=== PATIENT | female | born 1980 | race Caucasian/White ===

== ENCOUNTER 2020-12-31 01:14 | Inpatient (IN) | payer MEDICARE, SELFPAY ==
[2020-12-31 01:14] VITALS: BP 91/65; PULSE 74; RESP 18; TEMP 36.7; O2SAT 99
[2020-12-31 01:15] VITALS: BMI 20.3
[2020-12-31 06:00] VITALS: BP 76/49; PULSE 61; RESP 18; TEMP 36.6; O2SAT 97
--- NOTE | 2020-12-31 13:17 | P.HP_ITS ---
Providers/Chief Complaint Admitting Physician: Pablo Simon MD Chief Complaint: PSYCHOSIS - BED 151/1 HPI NPU History of Present Illness Radha Eguene is a 40 year old female who presented to an outside hospital endorsing suicidal thinking as well as psychosis with positive drug screen. He was transferred to [facility] and admitted to the neuropsychiatric unit for definitive treatment of those issues. This morning she presents reporting that she has been hospitalized multiple times, maybe ten, the most recent was May of 2018. She was a resistant historian, seeming annoyed at many [facility] ns and finding humor at most others. She reports that she gets outpatient services and was able to identify that she is on hydrocortisone, Neurontin, Valaciclovir, Xanax, Trazodone and Zyprexa, and some other supplements. She endorses smoking cigarettes, then to all other questions including alcohol, marijuana, or any other drugs, she reported sometimes but would not give specifics for most recent addictive behavior. She endorses being in rehab one time and having a DUI. The reports from the outside hospital were that [place] the middle [place]. She reports that she had broken down on the road and that she was in the middle of the road at some point, but we discussed the fact that if someone was crossing the road or otherwise behaving normally in the road, they would be described as being in the road, to which she laughed. She gave no other real information about the circumstances that led to her being placed on a hold, but we discussed the risks, benefits, and alternatives of restarting her medications that we could verify, and she understood and agreed to proceed as is documented in this note. PSYCHIATRIC HISTORY: As above. SUBSTANCE ABUSE HISTORY: As above. FAMILY HISTORY: She endorses mental health and addiction issues on her mom?s side of the family and addiction issues and suicide attempts on her father?s side of the family. DEVELOPMENTAL HISTORY: She denies any issues with her mother?s or delivery of her. She met all developmental milestones on time. She denies any speech therapy, learning support, emotional support, or special education classes. PSYCHOSOCIAL HISTORY: She reports her parents were together when she was born and that she has an older brother that is the product of that union. Neither of her parents had any other children. She said her childhood was not great, but she denied emotional, physical, or sexual abuse. She endorses graduating from high school and reports getting a college degree in [place] in [employer] with a minor in Yoruba. She was resistant to questions about sexuality, but eventually was able to explain that she was a human that was attracted to other humans. She has never been , she has never had children, she has never been in the , she endorses being spiritual. 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 LEGAL HISTORY: She denies any significant legal history. MEDICAL HISTORY: She endorses having adrenal insufficiency, MDS. Meds NPU Home Medications Medication Instructions Recorded Confirmed Last Taken Type alprazolam 0.5 mg PO BID PRN 12/31/20 12/31/20 Unknown History cyclobenzaprine 10 mg PO TID PRN 12/31/20 12/31/20 Unknown History gabapentin 600 mg PO TID 12/31/20 12/31/20 Unknown History hydrocortisone 10 mg PO DIRECTED 12/31/20 12/31/20 Unknown History olanzapine 5 mg PO BEDTIME 12/31/20 12/31/20 Unknown History propranolol 10 mg PO TID 12/31/20 12/31/20 Unknown History trazodone 50 mg PO BEDTIME 12/31/20 12/31/20 Unknown History valacyclovir 500 mg PO BID 12/31/20 12/31/20 Unknown History Allergies Allergy/AdvReac Type Severity Reaction Status Date / Time diphenhydramine Allergy Unknown Verified 01/01/21 12:48 [From Benadryl] haloperidol [From Haldol] Allergy ALGY-Anaphy Verified 01/01/21 12:47 laxis hydroxyzine [From Vistaril] Allergy Unknown Verified 01/01/21 12:47 ibuprofen Allergy ALGY-Anaphy Verified 01/01/21 12:47 laxis Penicillins Allergy ALGY-Hives Verified 01/01/21 12:47 Mental Status Exam MSE Comments: This is a well-nourished, well-developed, white female, with hospital scrubs on with limited grooming and eye contact. No abnormal movements except for mild psychomotor agitation. Semi-cooperative with exam in no acute distress. Speech was limited and increased rate, normal volume. Mood described as better than yesterday; affect odd with inappropriate laughter throughout the interview and confused faces made with some basic questions. Thought process, organized. Thought content: patient denied any suicidal or homicidal ideation. She endorsed paranoia and did seem guarded and endorses occasionally seeing things. Attention and concentration were intact, and memory was mostly reliable, but none were formally tested. She is alert and oriented times three. Insight and judgment are impaired. Impulse control is impaired. Vitals/I&O/Wt Last Vital Signs Temp 97.9 F 12/31/20 06:00 Pulse 61 12/31/20 06:00 Resp 18 12/31/20 06:00 BP 76/49 12/31/20 06:00 Pulse Ox 97 12/31/20 06:00 Weight last 48 hrs Weight 52.163 kg A&P Assessment and plan (1) Psychosis: Status: Acute (2) Anxiety: Status: Acute (3) Methamphetamine dependence: Status: Acute Additional A&P Information This is a 40-year-old, white female, with a long history of mental health and addiction issues, who presents with active psychosis, likely substance induced, with a history of medication management that is reportedly current. RECOMMENDATION AND PLAN: 1. Continue current medication. 2. Continue every 15 minute checks for safety. 3. Encourage individual, group and milieu therapies. 4. Encourage sober living treatment after discharge at the highest level of care to which she is willing to commit. Involuntary Hold Information 96 Hour Hold: 96 Hour Involuntary Admission: No 96 Hour Hold Ending Date: 01/05/21 96 Hour Hold Ending Time: 19:33 Attestations NPU Medical Necessity Statement*: Inpatient hospitalization is medically necessary and the clinically appropriate intervention, at this time. We will monitor medications and make changes as indicated. Patient will be in the hospital for over two midnights. Likely length of stay is three to five days. Coding Level of Care Code Acute Manager Office Services for Monty Gee Diagnoses Psychosis F29 Anxiety F41.9 Methamphetamine dependence F15.20
[2020-12-31 14:00] VITALS: BP 95/43; PULSE 65; RESP 18; TEMP 36.6; O2SAT 97
[2020-12-31 22:00] VITALS: BP 114/61; PULSE 77; RESP 18; TEMP 36.8; O2SAT 99
[2020-12-31] MEDS: trazodone 50 mg Tablet PO (22:45)
--- NOTE | 2021-01-01 03:39 | PC.NURSE ---
Skin assessment (12/31/20) revealed no wounds or injuries.
[2021-01-01 05:52] VITALS: BP 87/54; PULSE 73; RESP 16; TEMP 36.8; O2SAT 96
--- NOTE | 2021-01-01 10:13 | PM.NPN ---
Subjective NPU Subjective: Interval history: Radha presents today continuing to have very facial expressions and inappropriate laughter but addressing some frustration but mostly unable to direct the conversation about her frustration lately. Is unable to really talk about the addiction that did a role in her being admitted. She seemed not to believe the report of a positive drug screen and became irritable at this policy writer typist suggesting the drugs could have played a role in her admission. Mental Status Exam MSE Comments: This is a well-nourished, well-developed, white female, with hospital scrubs on with limited grooming and eye contact. No abnormal movements except for mild psychomotor agitation. Semi-cooperative with exam in no acute distress. Speech was limited and increased rate, normal volume. Mood described as irritated; affect odd with inappropriate laughter throughout the interview and confused faces made with some basic questions. Thought process, organized. Thought content: patient denied any suicidal or homicidal ideation. She endorsed paranoia and did seem guarded and endorses occasionally seeing things. Attention and concentration were intact, and memory was mostly reliable, but none were formally tested. She is alert and oriented times three. Insight and judgment are impaired. Impulse control is impaired. Vitals/I&O/Wt Last Vital Signs Temp 98.2 F 01/01/21 05:52 Pulse 73 01/01/21 05:52 Resp 16 01/01/21 05:52 BP 87/54 01/01/21 05:52 Pulse Ox 96 01/01/21 05:52 Weight last 48 hrs Weight 52.163 kg Weight 52.163 kg Weight 52.163 kg A&P Additional A&P Information (1) Psychosis: (2) Anxiety: (3) Methamphetamine dependence: This is a 40-year-old, white female, with a long history of mental health and addiction issues, who presents with active psychosis, likely substance induced, with a history of medication management that is reportedly current. RECOMMENDATION AND PLAN: 1. Continue current medication. 2. Continue every 15 minute checks for safety. 3. Encourage individual, group and milieu therapies. 4. Encourage sober living treatment after discharge at the highest level of care to which she is willing to commit. Involuntary Hold Information 96 Hour Hold: 96 Hour Involuntary Admission: No 96 Hour Hold Ending Date: 01/05/21 96 Hour Hold Ending Time: 19:33 Attestations NPU Medical Necessity Statement*: Inpatient hospitalization is medically necessary and the clinically appropriate intervention, at this time. We will monitor medications and make changes as indicated. Likely length of stay is three to five days. Coding Level of Care Code Acute Terminal Makeup Operator for Monty Gee
[2021-01-01] MEDS: hydrocortisone 10 mg Tablet PO (12:50)
[2021-01-01] MEDS: valACYclovir 1,000 mg Tablet 500 MG PO ×2 (12:51→17:08)
[2021-01-01] MEDS: ALPRAZolam 0.5 mg Tablet PO ×2 (12:57→21:39)
--- NOTE | 2021-01-01 12:58 | PC.NURSE ---
Addendum entered by Luciana Jimenes RN 01/01/21 14:43: LATE ENTRY FOR 1345 PRN MED EFFECTIVE. NO FURTHER COMPLAINTS OF ANXIETY VOICED BY PT AT THIS TIME. Original Note: PRN XANAX PRN XANAX 0.5 MG GIVEN PO FOR PT C/O ANXIETY. WILL CONTINUE TO MONITOR FOR MEDICATION EFFECTIVENESS.
[2021-01-01 14:00] VITALS: BP 93/61; PULSE 78; RESP 18; TEMP 36.2; O2SAT 97
[2021-01-01] MEDS: propranolol 20 mg Tablet 10 MG PO ×2 (15:19→21:39)
[2021-01-01] MEDS: gabapentin 300 mg Capsule 600 MG PO ×2 (15:19→21:38)
[2021-01-01] MEDS: hydrocortisone 10 mg Tablet 5 MG PO (17:07)
[2021-01-01 21:02] VITALS: BP 97/62; PULSE 79; RESP 17; TEMP 36.6; O2SAT 96
[2021-01-01] MEDS: OLANZapine 10 mg TABLET 5 MG PO (21:38)
[2021-01-01] MEDS: trazodone 50 mg Tablet PO (21:39)
[2021-01-01] MEDS: cyclobenzaprine 10 mg Tablet PO (21:39)
[2021-01-02 06:00] VITALS: BP 82/52; PULSE 64; RESP 16; TEMP 36.7; O2SAT 97
[2021-01-02 06:45] VITALS: BP 101/68
[2021-01-02] MEDS: gabapentin 300 mg Capsule 600 MG PO ×3 (10:24→20:33)
[2021-01-02] MEDS: propranolol 20 mg Tablet 10 MG PO ×2 (10:24→14:02)
[2021-01-02] MEDS: valACYclovir 1,000 mg Tablet 500 MG PO ×2 (10:25→17:23)
[2021-01-02] MEDS: hydrocortisone 10 mg Tablet PO (10:25)
--- NOTE | 2021-01-02 12:01 | PM.NPN ---
Subjective NPU Subjective: Interval history: Radha presents today reporting that she is still a bit out of sorts. Her attempt to communicate her interest there were plans are was extremely hard to follow secondary to her level of disorganization. She is taking her medication and reporting that she is feeling better and she does seem a little less guarded. She had previously not spoken much now that she is attempting spontaneous speech and she seeming more disorganized. Mental Status Exam MSE Comments: This is a well-nourished, well-developed, white female, with hospital scrubs on with limited grooming and eye contact. No abnormal movements except for mild psychomotor agitation. A little more cooperative with exam in no acute distress. Speech was a little more spontaneous and more normal rate and volume. Mood described as a little better; affect odd with less inappropriate laughter throughout the interview and confused faces made with some basic questions. Thought process, disorganized. Thought content: patient denied any suicidal or homicidal ideation. She endorsed paranoia and did seem guarded and endorses occasionally seeing things. Attention and concentration were intact, and memory was mostly reliable, but none were formally tested. She is alert and oriented times three. Insight and judgment are impaired. Impulse control is impaired. Vitals/I&O/Wt Last Vital Signs Temp 98.1 F 01/02/21 06:00 Pulse 64 01/02/21 06:00 Resp 16 01/02/21 06:00 BP 101/68 01/02/21 06:45 Pulse Ox 97 01/02/21 06:00 Weight last 48 hrs Weight 52.163 kg Weight 52.163 kg A&P Additional A&P Information (1) Psychosis: (2) Anxiety: (3) Methamphetamine dependence: This is a 40-year-old, white female, with a long history of mental health and addiction issues, who presents with active psychosis, likely substance induced, with a history of medication management that is reportedly current. RECOMMENDATION AND PLAN: 1. Continue current medication. 2. Continue every 15 minute checks for safety. 3. Encourage individual, group and milieu therapies. 4. Encourage sober living treatment after discharge at the highest level of care to which she is willing to commit. Involuntary Hold Information 96 Hour Hold: 96 Hour Involuntary Admission: No 96 Hour Hold Ending Date: 01/05/21 96 Hour Hold Ending Time: 19:33 Attestations NPU Medical Necessity Statement*: Inpatient hospitalization is medically necessary and the clinically appropriate intervention, at this time. We will monitor medications and make changes as indicated. Likely length of stay is 2-4 days. Coding Level of Care Code Acute Coal Pulverizing Operator for Monty Gee
[2021-01-02 14:00] VITALS: BP 110/69; PULSE 70; RESP 16; TEMP 36.7; O2SAT 98
[2021-01-02] MEDS: hydrocortisone 10 mg Tablet 5 MG PO (15:38)
[2021-01-02] MEDS: trazodone 50 mg Tablet PO (20:33)
[2021-01-02] MEDS: OLANZapine 10 mg TABLET 5 MG PO (20:34)
[2021-01-02 21:58] VITALS: BP 107/73; PULSE 84; RESP 17; TEMP 36.7; O2SAT 97
[2021-01-02] MEDS: ALPRAZolam 0.5 mg Tablet PO (23:04)
--- NOTE | 2021-01-02 23:05 | NPU.GN ---
[facility] Unit Xanax 0.5mg PO given for anxiety
--- NOTE | 2021-01-02 23:29 | PC.NURSE ---
patient refused Vistaril after opening. Two 25mg caps wasted.
[2021-01-03 06:00] VITALS: BP 95/61; PULSE 74; RESP 18; TEMP 37.2; O2SAT 97
[2021-01-03] MEDS: gabapentin 300 mg Capsule 600 MG PO ×3 (10:08→21:13)
[2021-01-03] MEDS: valACYclovir 1,000 mg Tablet 500 MG PO ×2 (10:08→17:45)
[2021-01-03] MEDS: hydrocortisone 10 mg Tablet PO (10:08)
--- NOTE | 2021-01-03 12:23 | NPU.GN ---
[facility] Group Topic: Two True one false General Mood of Group: Patient refused group today.
[2021-01-03 14:00] VITALS: BP 99/65; PULSE 90; RESP 17; TEMP 36.6; O2SAT 96
[2021-01-03] MEDS: hydrocortisone 10 mg Tablet 5 MG PO (15:07)
--- NOTE | 2021-01-03 18:07 | PM.NPN ---
Subjective NPU Subjective: Interval history: Radha presents today stating less guarded but continuing to be disorganized. She continues to respond to most situations with inappropriate laughter and shoulder shrugs and continued confusion. She continues to have no response to recommendation for medication changes given her stagnant state and is likely drug induced psychosis. Mental Status Exam MSE Comments: This is a well-nourished, well-developed, white female, with hospital scrubs on with limited grooming and eye contact. No abnormal movements except for mild psychomotor agitation. A little more cooperative with exam in no acute distress. Speech was a little more spontaneous and more normal rate and volume. Mood described as a little better; affect odd with continued inappropriate laughter throughout the interview and confused faces made with some basic questions. Thought process, disorganized. Thought content: patient denied any suicidal or homicidal ideation. She endorsed paranoia and did seem a little less guarded and endorses occasionally seeing things. Attention and concentration were intact, and memory was mostly reliable, but none were formally tested. She is alert and oriented times three. Insight and judgment are impaired. Impulse control is impaired. Vitals/I&O/Wt Last Vital Signs Temp 98.2 F 01/03/21 21:32 Pulse 66 01/03/21 21:32 Resp 17 01/03/21 21:32 BP 113/71 01/03/21 21:32 Pulse Ox 98 01/03/21 21:32 A&P Additional A&P Information (1) Psychosis: (2) Anxiety: (3) Methamphetamine dependence: This is a 40-year-old, white female, with a long history of mental health and addiction issues, who presents with active psychosis, likely substance induced, with a history of medication management that is reportedly current. RECOMMENDATION AND PLAN: 1. Continue current medication. 2. Continue every 15 minute checks for safety. 3. Encourage individual, group and milieu therapies. 4. Encourage sober living treatment after discharge at the highest level of care to which she is willing to commit. Involuntary Hold Information 96 Hour Hold: 96 Hour Involuntary Admission: No 96 Hour Hold Ending Date: 01/05/21 96 Hour Hold Ending Time: 19:33 Attestations NPU Medical Necessity Statement*: Inpatient hospitalization is medically necessary and the clinically appropriate intervention, at this time. We will monitor medications and make changes as indicated. Likely length of stay is 2-4 days. Coding Level of Care Code Acute Technical Communication Teacher for Monty Gee
[2021-01-03] MEDS: ALPRAZolam 0.5 mg Tablet PO (21:12)
[2021-01-03] MEDS: OLANZapine 10 mg TABLET 5 MG PO (21:12)
[2021-01-03] MEDS: cyclobenzaprine 10 mg Tablet PO (21:12)
[2021-01-03] MEDS: trazodone 50 mg Tablet PO (21:13)
[2021-01-03 21:32] VITALS: BP 113/71; PULSE 66; RESP 17; TEMP 36.8; O2SAT 98
[2021-01-04 06:00] VITALS: BP 98/66; PULSE 79; RESP 18; TEMP 36.7; O2SAT 96
[2021-01-04] MEDS: propranolol 20 mg Tablet 10 MG PO ×2 (09:19→22:00)
[2021-01-04] MEDS: hydrocortisone 10 mg Tablet PO (09:19)
[2021-01-04] MEDS: gabapentin 300 mg Capsule 600 MG PO ×3 (09:20→22:00)
[2021-01-04] MEDS: valACYclovir 1,000 mg Tablet 500 MG PO ×2 (09:25→17:36)
--- NOTE | 2021-01-04 10:49 | PC.SOCIAL ---
IMM Update Attempted to discuss patient's medicare rights with her. Due to her mental status she was not able to comprehend the information and refused to sign. Attempted to call patient's father, no answer, left voicemail.
[2021-01-04] MEDS: ALPRAZolam 0.5 mg Tablet PO ×2 (12:51→22:05)
[2021-01-04 14:00] VITALS: BP 94/62; PULSE 89; RESP 20; TEMP 36.9; O2SAT 96
[2021-01-04] MEDS: hydrocortisone 10 mg Tablet 5 MG PO (15:10)
--- NOTE | 2021-01-04 16:03 | P.PN_ITS ---
Subjective NPU Subjective: Interval history: Radha presents today distraught about her circumstance and frustrated at quality analyst/technical writer told her she was not being discharged today. She thought her 90s hold was up on the but it is actually up on the in the evening. We began a discussion about what circumstances she felt would argue for discharge being the right thing to do and her disorganization would not allow her to articulate one clear sentence about a reason that would support her being discharged. We discussed the likelihood of a 21-day hold. Mental Status Exam MSE Comments: This is a well-nourished, well-developed, white female, with hospital scrubs on with limited grooming and eye contact. No abnormal movements except for mild psychomotor agitation. Limited cooperation with exam in no acute distress. Speech was a little more spontaneous and more normal rate and volume. Mood described as a little better; affect odd with continued inappropriate laughter throughout the interview and confused faces made with some basic questions. Thought process, disorganized. Thought content: patient denied any suicidal or homicidal ideation. She endorsed paranoia and did seem a little less guarded and endorses occasionally seeing things. Attention and concentration were intact, and memory was mostly reliable, but none were formally tested. She is alert and oriented times three. Insight and judgment are impaired. Impulse control is impaired. Vitals/I&O/Wt Last Vital Signs Temp 98.1 F 01/04/21 06:00 Pulse 79 01/04/21 06:00 Resp 18 01/04/21 06:00 BP 98/66 01/04/21 06:00 Pulse Ox 96 01/04/21 06:00 A&P Additional A&P Information (1) Psychosis: (2) Anxiety: (3) Methamphetamine dependence: This is a 40-year-old, white female, with a long history of mental health and addiction issues, who presents with active psychosis, likely substance induced, with a history of medication management that is reportedly current. RECOMMENDATION AND PLAN: 1. Continue current medication. Make suggestion to consider medication change which she was not accepting. 2. Continue every 15 minute checks for safety. 3. Encourage individual, group and milieu therapies. 4. Encourage sober living treatment after discharge at the highest level of care to which she is willing to commit. 5. Final 21-day hold first thing in the morning. Involuntary Hold Information 96 Hour Hold: 96 Hour Involuntary Admission: No 96 Hour Hold Ending Date: 01/05/21 96 Hour Hold Ending Time: 19:33 Attestations NPU Medical Necessity Statement*: Inpatient hospitalization is medically necessary and the clinically appropriate intervention, at this time. We will monitor medications and make changes as indicated. Likely length of stay is 6-10 days. Coding Level of Care Code Acute Devops Solutions Architect for Monty Gee
[2021-01-04 21:32] VITALS: BP 108/71; PULSE 72; RESP 16; TEMP 36.8; O2SAT 97
[2021-01-04] MEDS: trazodone 50 mg Tablet PO (22:00)
[2021-01-04] MEDS: OLANZapine 10 mg TABLET 5 MG PO (22:00)
[2021-01-05 05:51] VITALS: BP 103/69; PULSE 78; RESP 17; TEMP 37.1; O2SAT 96
[2021-01-05] MEDS: valACYclovir 1,000 mg Tablet 500 MG PO ×2 (08:19→17:47)
[2021-01-05] MEDS: gabapentin 300 mg Capsule 600 MG PO ×3 (08:19→21:13)
[2021-01-05] MEDS: hydrocortisone 10 mg Tablet PO (08:20)
--- NOTE | 2021-01-05 13:27 | NPU.GN ---
[facility] Group Topic:Communications General Mood of Group: The patient was on time to group and did participate. The patient was dressed appropriately and had good hygiene. The topic was communication. Communicating with doctors, family, friends and even authorities such as probation and parole officers. The patients were given a card a piece that asked two to three questions, for example, one was What words would you use to describe yourself? What words would others use to describe you? This opened everyone up to conversation. Every one participated and spoke with each other. We spoke about ways to speak with your doctor and ways to speak with director of social work to get the help that they need while they are in Neuro psych. The patient has a good understanding of communication at this time.
[2021-01-05 14:00] VITALS: BP 123/79; PULSE 79; RESP 20; TEMP 36.7; O2SAT 94
[2021-01-05] MEDS: ALPRAZolam 0.5 mg Tablet PO (14:18)
[2021-01-05] MEDS: hydrocortisone 10 mg Tablet 5 MG PO (14:19)
[2021-01-05] MEDS: cyclobenzaprine 10 mg Tablet PO (14:19)
--- NOTE | 2021-01-05 16:35 | PM.NPN ---
Subjective NPU Subjective: Interval history: Radha presents today continuing to struggle with disorganization. She continues to be unable to formulate a clear coherent plan about discharge or even why she is here. She went on a fairly animated discussion about being gas lighted or gas lit, but cannot articulate why she is here or what her plan would be to avoid being here again. She is only able to say that she has At home and she needed to go home with her cats. We identified with her that the 21-day hold paperwork was filed and that the hearing is tomorrow. Mental Status Exam MSE Comments: This is a well-nourished, well-developed, white female, with hospital scrubs on with limited grooming and eye contact. No abnormal movements except for mild psychomotor agitation. Limited cooperation with exam in no acute distress. Speech was a little more spontaneous and more normal rate and volume. Mood described as better; affect odd with continued inappropriate laughter throughout the interview and confused faces made with some basic questions. Thought process, disorganized. Thought content: patient denied any suicidal or homicidal ideation. She endorsed paranoia and did seem a little less guarded and endorses occasionally seeing things. Attention and concentration were intact, and memory was mostly reliable, but none were formally tested. She is alert and oriented times three. Insight and judgment are impaired. Impulse control is impaired. Vitals/I&O/Wt Last Vital Signs Temp 98.4 F 01/05/21 20:33 Pulse 92 01/05/21 20:33 Resp 18 01/05/21 20:33 BP 113/75 01/05/21 20:33 Pulse Ox 95 01/05/21 20:33 A&P Additional A&P Information (1) Psychosis: (2) Anxiety: (3) Methamphetamine dependence: This is a 40-year-old, white female, with a long history of mental health and addiction issues, who presents with active psychosis, likely substance induced, with a history of medication management that is reportedly current. RECOMMENDATION AND PLAN: 1. Continue current medication. Make suggestion to consider medication change which she was not accepting. 2. Continue every 15 minute checks for safety. 3. Encourage individual, group and milieu therapies. 4. Encourage sober living treatment after discharge at the highest level of care to which she is willing to commit. 5. 21-day hold hearing at 3 PM tomorrow. Involuntary Hold Information 96 Hour Hold: 96 Hour Involuntary Admission: No 96 Hour Hold Ending Date: 01/05/21 96 Hour Hold Ending Time: 19:33 Attestations NPU Medical Necessity Statement*: Inpatient hospitalization is medically necessary and the clinically appropriate intervention, at this time. We will monitor medications and make changes as indicated. Likely length of stay is 6-10 days. Coding Level of Care Code Acute Commercial Announcer for Monty Gee
[2021-01-05 20:33] VITALS: BP 113/75; PULSE 92; RESP 18; TEMP 36.9; O2SAT 95
[2021-01-05] MEDS: OLANZapine 10 mg TABLET 5 MG PO (21:13)
[2021-01-05] MEDS: trazodone 50 mg Tablet PO (21:14)
[2021-01-06 06:00] VITALS: BP 111/72; PULSE 69; RESP 17; TEMP 37.1; O2SAT 95
[2021-01-06] MEDS: valACYclovir 1,000 mg Tablet 500 MG PO ×2 (08:56→17:27)
[2021-01-06] MEDS: hydrocortisone 10 mg Tablet PO (08:57)
[2021-01-06] MEDS: gabapentin 300 mg Capsule 600 MG PO ×3 (08:57→20:47)
[2021-01-06 14:00] VITALS: BP 105/62; PULSE 107; RESP 17; TEMP 36.6; O2SAT 95
--- NOTE | 2021-01-06 15:07 | P.PN_ITS ---
Subjective NPU Subjective: Interval history: Patient presents today reporting that she is going to go to the hearing and determine her desire to leave. She is a little more clear today which is continue to be the case we discussed the likely represents not using methamphetamine. Or any other drugs she is been using. At the hearing she endorsed side effects from Zyprexa as the reason why she does get medications. We discussed the possibility of starting Invega including the risks, benefits and alternatives and she understood and reported that she was not sure showing hesitancy about making any changes.: She had been admonished to consider discussing medications that could be absent the side effects that she does not like from Zyprexa. Medications: Reviewed: Yes Mental Status Exam MSE Comments: This is a well-nourished, well-developed, white female, with hospital scrubs on with limited grooming and eye contact. No abnormal movements. More cooperative with exam in no acute distress. Speech was a more spontaneous and more normal rate and volume. Mood described as better; affect odd with continued less inappropriate laughter throughout the interview. Thought process, more organized. Thought content: patient denied any suicidal or homicidal ideation. She endorsed paranoia and was less guarded and she denied auditory or visual hallucination. Attention and concentration were intact, and memory was more reliable, but none were formally tested. She is alert and oriented times three. Insight and judgment are limited. Impulse control is improving. Vitals/I&O/Wt Last Vital Signs Temp 98.8 F 01/06/21 06:00 Pulse 69 01/06/21 06:00 Resp 17 01/06/21 06:00 BP 111/72 01/06/21 06:00 Pulse Ox 95 01/06/21 06:00 A&P Additional A&P Information (1) Psychosis: (2) Anxiety: (3) Methamphetamine dependence: This is a 40-year-old, white female, with a long history of mental health and addiction issues, who presents with active psychosis, likely substance induced, with a history of medication management that is reportedly current. RECOMMENDATION AND PLAN: 1. Continue current medication. Make suggestion to consider medication change which she was not accepting. 2. Continue every 15 minute checks for safety. 3. Encourage individual, group and milieu therapies. 4. Encourage sober living treatment after discharge at the highest level of care to which she is willing to commit. 5. placed on 21 day hold. Involuntary Hold Information 96 Hour Hold: 96 Hour Involuntary Admission: No 96 Hour Hold Ending Date: 01/05/21 96 Hour Hold Ending Time: 19:33 Attestations NPU Medical Necessity Statement*: Inpatient hospitalization is medically necessary and the clinically appropriate intervention, at this time. We will monitor medications and make changes as indicated. Likely length of stay is 5-9 days. Coding Level of Care Code Acute Global Implementation Manager for Monty Gee
[2021-01-06] MEDS: hydrocortisone 10 mg Tablet 5 MG PO (17:26)
[2021-01-06] MEDS: OLANZapine 10 mg TABLET 5 MG PO (20:48)
[2021-01-06] MEDS: propranolol 20 mg Tablet 10 MG PO (20:48)
[2021-01-06] MEDS: trazodone 50 mg Tablet PO (20:48)
[2021-01-06] MEDS: ALPRAZolam 0.5 mg Tablet PO (21:02)
[2021-01-06 21:22] VITALS: BP 105/62; PULSE 107; RESP 17; TEMP 36.6; O2SAT 95
[2021-01-07 06:00] VITALS: BP 105/62; PULSE 107; RESP 17; TEMP 36.6; O2SAT 95
[2021-01-07] MEDS: hydrocortisone 10 mg Tablet PO (08:30)
[2021-01-07] MEDS: valACYclovir 1,000 mg Tablet 500 MG PO ×2 (08:31→21:12)
[2021-01-07] MEDS: propranolol 20 mg Tablet 10 MG PO ×2 (08:31→16:05)
[2021-01-07] MEDS: gabapentin 300 mg Capsule 600 MG PO ×3 (08:31→21:12)
--- NOTE | 2021-01-07 11:07 | PM.NPN ---
Subjective NPU Subjective: Interval history: Radha presents today for the first time having a fairly rational conversation with this health technical writer. She still has some glitches in her thinking but she seems to be more able to have a organized conversation about what we do from here. Still not allowing accountability for her addiction and her methamphetamine use but is improving in that area as well. She reports that she is eating and sleeping better. We once again discussed the risk-benefit alternatives of initiating Invega in the morning and she understood but is still pondering whether she wants to move forward with that medication. Mental Status Exam MSE Comments: This is a well-nourished, well-developed, white female, with hospital scrubs on with improving grooming and eye contact. No abnormal movements. More cooperative with exam in no acute distress. Speech was a more spontaneous and more normal rate and volume. Mood described as better; affect less odd. Thought process, more organized. Thought content: patient denied any suicidal or homicidal ideation. She denied paranoia and no delusions were noted, and she denied auditory or visual hallucination. Attention and concentration were intact, and memory was more reliable, but none were formally tested. She is alert and oriented times three. Insight and judgment are limited. Impulse control is improving. Vitals/I&O/Wt Last Vital Signs Temp 98 F 01/07/21 06:00 Pulse 107 H 01/07/21 06:00 Resp 17 01/07/21 06:00 BP 105/62 01/07/21 06:00 Pulse Ox 95 01/07/21 06:00 A&P Additional A&P Information (1) Psychosis: (2) Anxiety: (3) Methamphetamine dependence: This is a 40-year-old, white female, with a long history of mental health and addiction issues, who presents with active psychosis, likely substance induced, with a history of medication management that is reportedly current. RECOMMENDATION AND PLAN: 1. Continue current medication. Make suggestion to consider medication change which she was not accepting. 2. Continue every 15 minute checks for safety. 3. Encourage individual, group and milieu therapies. 4. Encourage sober living treatment after discharge at the highest level of care to which she is willing to commit. 5. placed on 21 day hold. Involuntary Hold Information 96 Hour Hold: 96 Hour Involuntary Admission: No 96 Hour Hold Ending Date: 01/05/21 96 Hour Hold Ending Time: 19:33 Attestations NPU Medical Necessity Statement*: Inpatient hospitalization is medically necessary and the clinically appropriate intervention, at this time. We will monitor medications and make changes as indicated. Likely length of stay is 2-4 days. Coding Level of Care Code Acute Money Room Teller for Monty Gee
[2021-01-07 14:00] VITALS: BP 102/70; PULSE 91; RESP 16; TEMP 36.9; O2SAT 94
[2021-01-07] MEDS: hydrocortisone 10 mg Tablet 5 MG PO (16:09)
[2021-01-07] MEDS: cyclobenzaprine 10 mg Tablet PO (21:12)
[2021-01-07] MEDS: trazodone 50 mg Tablet PO (21:12)
[2021-01-07] MEDS: ALPRAZolam 0.5 mg Tablet PO (21:12)
[2021-01-07] MEDS: OLANZapine 10 mg TABLET 5 MG PO (21:13)
--- NOTE | 2021-01-07 21:15 | PC.NURSE ---
Xanax 0.5 mg PO given for anxiety;Flexeril 10 mg PO given for muscle tightness / spasms.
[2021-01-07 21:39] VITALS: BP 95/63; PULSE 75; RESP 15; TEMP 37; O2SAT 97
--- NOTE | 2021-01-07 22:39 | PC.NURSE ---
Propranolol 20mg ( dose 10 mg ) wasted; Patient refused
[2021-01-08 06:00] VITALS: BP 98/61; PULSE 78; RESP 17; TEMP 36.8; O2SAT 98
[2021-01-08] MEDS: gabapentin 300 mg Capsule 600 MG PO ×3 (09:04→22:01)
[2021-01-08] MEDS: hydrocortisone 10 mg Tablet PO (09:04)
[2021-01-08] MEDS: valACYclovir 1,000 mg Tablet 500 MG PO ×2 (09:05→22:00)
--- NOTE | 2021-01-08 09:40 | PM.NPN ---
Subjective NPU Subjective: Interval history: Patient presented reporting that she is feeling better over all and is hopeful that she can get discharged soon.We discussed her improvement and the areas of concern. We discussed the new doctor coming and being sort of a second opinion. She is sleeping and eating well. She is still struggling with insight around her drug use. Mental Status Exam MSE Comments: This is a well-nourished, well-developed, white female, with hospital scrubs on with improving grooming and eye contact. No abnormal movements. Cooperative and in no acute distress. Speech is spontaneous and at a normal rate and volume. Mood is better; affect is mood congruent. Thought process is organized. Thought content: patient denied any suicidal or homicidal ideation. She denied paranoia and no delusions were noted, and she denied auditory or visual hallucination. Attention and concentration were intact, and memory was more reliable, but none were formally tested. She is alert and oriented times three. Insight and judgment are limited. Impulse control is improving. Vitals/I&O/Wt Last Vital Signs Temp 98.2 F 01/08/21 06:00 Pulse 78 01/08/21 06:00 Resp 17 01/08/21 06:00 BP 98/61 01/08/21 06:00 Pulse Ox 98 01/08/21 06:00 Weight last 48 hrs Weight 55.111 kg A&P Additional A&P Information (1) Methamphetamine dependence: (2) Anxiety: (3) Psychosis: Additional A&P Information This is a 40-year-old, white female, with a long history of mental health and addiction issues, who presents with active psychosis, likely substance induced, with a history of medication management that is reportedly current. RECOMMENDATION AND PLAN: 1. Continue current medication. Make suggestion to consider medication change which she was not accepting. 2. Continue every 15 minute checks for safety. 3. Encourage individual, group and milieu therapies. 4. Encourage sober living treatment after discharge at the highest level of care to which she is willing to commit. 5. On 21 day hold. Involuntary Hold Information 96 Hour Hold: 96 Hour Involuntary Admission: No 96 Hour Hold Ending Date: 01/05/21 96 Hour Hold Ending Time: 19:33 Attestations NPU Medical Necessity Statement*: Inpatient hospitalization is medically necessary and the clinically appropriate intervention, at this time. We will monitor medications and make changes as indicated. Likely length of stay is 1-3 days. Coding Level of Care Code Acute Printed Circuit Boards Laminator for Monty Gee
[2021-01-08 14:00] VITALS: BP 111/74; PULSE 88; RESP 16; TEMP 36.4; O2SAT 96
[2021-01-08] MEDS: hydrocortisone 10 mg Tablet 5 MG PO (14:58)
[2021-01-08] MEDS: propranolol 20 mg Tablet 10 MG PO ×2 (14:58→22:01)
[2021-01-08 20:44] VITALS: BP 121/73; PULSE 89; RESP 16; TEMP 37.2; O2SAT 97
[2021-01-08] MEDS: ALPRAZolam 0.5 mg Tablet PO (22:01)
[2021-01-08] MEDS: cyclobenzaprine 10 mg Tablet PO (22:01)
[2021-01-08] MEDS: trazodone 50 mg Tablet PO (22:02)
[2021-01-08] MEDS: OLANZapine 10 mg TABLET 5 MG PO (22:02)
[2021-01-09 06:00] VITALS: BP 91/61; PULSE 84; RESP 14; TEMP 36.6; O2SAT 94
[2021-01-09] MEDS: valACYclovir 1,000 mg Tablet 500 MG PO ×2 (08:44→22:30)
[2021-01-09] MEDS: ALPRAZolam 0.5 mg Tablet PO ×2 (08:44→22:30)
[2021-01-09] MEDS: hydrocortisone 10 mg Tablet PO (08:44)
[2021-01-09] MEDS: gabapentin 300 mg Capsule 600 MG PO ×3 (08:45→22:24)
--- NOTE | 2021-01-09 08:45 | PC.NURSE ---
refused scheduled inderal
--- NOTE | 2021-01-09 08:46 | PC.NURSE ---
Addendum entered by Maribel Louie LPN 01/09/21 11:24: PRN MED EFFECTIVE NO FURTHER C/O ANXIETY Original Note: PRN XANAX 0.5 MG GIVEN PO PER PT C/O STATED ANXIETY
--- NOTE | 2021-01-09 10:50 | P.PN_ITS ---
Subjective NPU Subjective: Interval history: I discussed the patient's progress in the multidisciplinary team meeting and with Dr. Simon. She was on a 21-day hold and has been slowly improving. Dr. Simon feels that she is on a good medication regimen at this point but could use some more time coming off of meth. The patient told me about her paranoia, in which she felt that people were following her and were videotaping her. She says that it is hard to tell if that is still present, because there is actual video recording going on here in the hospital. We talked about her meth use and her belief that meth finds me. She says that her ex- also keeps bringing her meth. We talked about the good things and not so good things about using meth. She would like to stop using. She says that her mood is still depressed, but denies suicidal and homicidal ideation at this point. She denies auditory and visual hallucinations. Mental Status Exam MSE Comments: This is a well-nourished, well-developed, white female, with hospital scrubs on with improving grooming and eye contact. No abnormal movements. Cooperative and in no acute distress. Speech is spontaneous and at a normal rate and volume. Mood is improving; affect is mood congruent. Thought process is organized. Thought content: patient denied any suicidal or homicidal ideation. She denied paranoia and no delusions were noted, and she denied auditory or visual hallucination. Attention and concentration were intact, and memory was more reliable, but none were formally tested. She is alert and oriented times three. Insight and judgment are limited. Impulse control is improving. Vitals/I&O/Wt Last Vital Signs Temp 98.5 F 01/10/21 06:00 Pulse 73 01/10/21 06:00 Resp 15 01/10/21 06:00 BP 99/67 01/10/21 06:00 Pulse Ox 98 01/10/21 06:00 Weight last 48 hrs Weight 55.111 kg Weight 55.452 kg A&P Assessment and plan (1) Methamphetamine dependence: Status: Acute (2) Anxiety: Status: Acute (3) Psychosis: Status: Acute Additional A&P Information This is a 40-year-old, white female, with a long history of mental health and addiction issues, who presents with active psychosis, likely substance induced, with a history of medication management that is reportedly current. RECOMMENDATION AND PLAN: 1. Continue current medication. Make suggestion to consider medication change which she was not accepting. 2. Continue every 15 minute checks for safety. 3. Encourage individual, group and milieu therapies. 4. Encourage sober living treatment after discharge at the highest level of care to which she is willing to commit. 5. placed on 21 day hold. Involuntary Hold Information 96 Hour Hold: 96 Hour Involuntary Admission: No 96 Hour Hold Ending Date: 01/05/21 96 Hour Hold Ending Time: 19:33 Attestations NPU Medical Necessity Statement*: Inpatient hospitalization is medically necessary and the clinically appropriate intervention, at this time. We will monitor medications and make changes as indicated. Likely length of stay is 1-3 days. Coding Level of Care Code Acute Order Schedule Clerk for Monty Gee Diagnoses Methamphetamine dependence F15.20 Anxiety F41.9 Psychosis F29
[2021-01-09 14:00] VITALS: BP 97/68; PULSE 94; RESP 15; TEMP 36.3; O2SAT 96
[2021-01-09] MEDS: hydrocortisone 10 mg Tablet 5 MG PO (15:22)
--- NOTE | 2021-01-09 16:06 | PC.NURSE ---
refused scheduled Inderal
[2021-01-09] MEDS: cyclobenzaprine 10 mg Tablet PO ×2 (17:30→22:30)
--- NOTE | 2021-01-09 17:30 | PC.NURSE ---
PRN FLEXERIL 10 MG GIVEN PO PER PT C/O MUSCLE SPASMS
[2021-01-09 21:53] VITALS: BP 108/72; PULSE 76; RESP 14; TEMP 37.1; O2SAT 95
[2021-01-09] MEDS: propranolol 20 mg Tablet 10 MG PO (22:23)
[2021-01-09] MEDS: trazodone 50 mg Tablet PO (22:24)
[2021-01-09] MEDS: OLANZapine 10 mg TABLET 5 MG PO (22:24)
[2021-01-10 06:00] VITALS: BP 99/67; PULSE 73; RESP 15; TEMP 36.9; O2SAT 98
[2021-01-10] MEDS: valACYclovir 1,000 mg Tablet 500 MG PO (08:13)
[2021-01-10] MEDS: hydrocortisone 10 mg Tablet PO (08:13)
[2021-01-10] MEDS: gabapentin 300 mg Capsule 600 MG PO (08:13)
--- NOTE | 2021-01-10 08:14 | PC.NURSE ---
refused scheduled inderal
--- NOTE | 2021-01-10 12:24 | P.DS_ITS ---
Diagnoses at Discharge Discharge Diagnosis (1) Methamphetamine dependence: Status: Acute (2) Anxiety: Status: Acute (3) Psychosis: Status: Resolved Reason for Visit Reason for Visit: PSYCHOSIS - BED 151/1 Brief History: Radha Eugene is a 40 year old female who presented to an outside hospital endorsing suicidal thinking as well as psychosis with positive drug screen. He was transferred to [facility] and admitted to the neuropsychiatric unit for definitive treatment of those issues. This morning she presents reporting that she has been hospitalized multiple times, maybe ten, the most recent was May of 2018. She was a resistant historian, seeming annoyed at many questions and finding humor at most others. She reports that she gets outpatient services and was able to identify that she is on hydrocortisone, Neurontin, Valaciclovir, Xanax, Trazodone and Zyprexa, and some other supplements. She endorses smoking cigarettes, then to all other questions including alcohol, marijuana, or any other drugs, she reported sometimes but would not give specifics for most recent addictive behavior. She endorses being in rehab one time and having a DUI. The reports from the outside hospital were that [place] the middle [place]. She reports that she had broken down on the road and that she was in the middle of the road at some point, but we discussed the fact that if someone was crossing the road or otherwise behaving normally in the road, they would be described as being in the road, to which she laughed. She gave no other real information about the circumstances that led to her being placed on a hold, but we discussed the risks, benefits, and alternatives of restarting her medications that we could verify, and she understood and agreed to proceed as is documented in this note. Hospital Course Hospital Course The patient was admitted to the neuropsychiatric unit for definitive treatment of these issues. On the unit she slowly acclimated to the individual, group and milieu therapies. There were some mild psychotic symptoms present initially which resolved with the medication being restarted. She was receptive to treatment team recommendations and showed modest improvement and was able to contract for safety prior to discharge. During the hospitalization, patient had routine laboratory studies which were within normal limits except for few outliers. Additionally there was a general medical evaluation which was also within normal limits and revealed no new acute processes. Discharge Summary: At the time of discharge, psychosis and lethality were denied. Mood and anxiety were well managed. Patient endorsed a plan to avoid all drugs of abuse and follow-up with the aftercare recommendations of the treatment team. Patient was evaluated and deemed to be absent credible lethality, and had achieved the maximum benefit from an inpatient hospitalization, so was discharged. Involuntary Hold Information 96 Hour Hold: 96 Hour Involuntary Admission: No 96 Hour Hold Ending Date: 01/05/21 96 Hour Hold Ending Time: 19:33 Mental Status Exam MSE Comments: This is a well-nourished, well-developed, white female, with hospital scrubs on with improving grooming and eye contact. No abnormal movements. Cooperative and in no acute distress. Speech is spontaneous and at a normal rate and volume. Mood is better; affect is mood congruent. Thought process is organized. Thought content: patient denied any suicidal or homicidal ideation. She denied paranoia and no delusions were noted, and she denied auditory or visual hallucination. Attention and concentration were intact, and memory was more reliable, but none were formally tested. She is alert and oriented times three. Insight and judgment are limited. Impulse control is improving. Discharge Data Vitals: Last Vital Signs Temp 98.5 F 01/10/21 12:44 Pulse 73 01/10/21 12:44 Resp 15 01/10/21 12:44 BP 99/67 01/10/21 12:44 Pulse Ox 98 01/10/21 12:44 Discharge Plan Discharge Patient Disposition: Home Condition: Stable Prescriptions: Continued alprazolam 0.5 mg tablet 0.5 mg PO BID PRN (Reason: Anxiety) RF: 0 cyclobenzaprine 10 mg tablet 10 mg PO TID PRN (Reason: Muscle Spasm) RF: 0 gabapentin 600 mg tablet 600 mg PO TID RF: 0 hydrocortisone 10 mg tablet 10 mg PO DIRECTED RF: 0 olanzapine 10 mg tablet 5 mg PO BEDTIME RF: 0 propranolol 10 mg tablet 10 mg PO TID RF: 0 trazodone 50 mg tablet 50 mg PO BEDTIME RF: 0 valacyclovir 500 mg tablet 500 mg PO BID RF: 0 Discharge Orders: Discharge Order (Routine); Ordered 01/10/21 Ordered By: Charli Neves Referrals: [facility] [Other] - 01/25/21 2:00 pm (Psychiatry appt with Dr. Carlin on 01/25/21 @ 2:00pm.) General and Geriatric Medicine [Other] (Follow up appointment with Riana Downs on 01/17/21 @ 9:30am. ) Discharge Diet: Usual diet Discharge Activity: Resume usual activity Patient Instructions: Opioid Safety Discharge Attestations NPU Time Spent in Discharge Care*: less than 30 min Specific Discharge Activities: Specific discharge activities: educating patient, discussing with oil field caser/social workers/dc planners, documenting/other paperwork and evaluating patient/reviewing data Status at Discharge: Cognitive status at discharge: mildly impaired cognition , Behavioral status at discharge: can be uncooperative , Functional status at discharge: independent ambulation Overall status at discharge: patient is back to baseline Coding Level of Care Code Acute Chg FW DC note Diagnoses Methamphetamine dependence F15.20 Anxiety F41.9 Psychosis F29
--- NOTE | 2021-01-10 12:25 | NPU.GN ---
[facility] Group Topic:Thought Processing General Mood of Group: The patient come to group willingly. The patient was on time, good hygiene and properly dressed. The group discussed how the mind thinks and discussed negative thoughts and how we process those negative thoughts. The patient did participate in the group. The patient were all gave a thought table to be able to list specific negative thoughts and were able to come up with different ways to cope with those thoughts. The group was able to go outside for fresh air, which in turn helped the group to open up more. Information about the NPU was discussed, information about the routine for NPU, the doctor and nursing staff as well as social work job titles and how they each play a part in their care while here. 96 hr holds and 21 day holds were also explained as well.
[2021-01-10 12:44] VITALS: BP 99/67; PULSE 73; RESP 15; TEMP 36.9; O2SAT 98
== END 2021-01-10 13:49 | disposition home or self-care (01) | DRG 897 ==
PROVIDERS: Admitting Provider Psychiatry & Neurology Psychiatry; Visit Provider Psychiatry & Neurology Child & Adolescent Psychiatry
DX: F15.259 Other stimulant dependence with stimulant-induced psychotic disorder, unspecified (principal); F41.9 Anxiety disorder, unspecified; Z81.8 Family history of other mental and behavioral disorders; Z81.1 Family history of alcohol abuse and dependence; Z88.0 Allergy status to penicillin
CPT/HCPCS: J8499